=== PATIENT | male | born 1965 ===

== ENCOUNTER 2018-09-07 20:27 | Emergency (ER) | payer OTHER ==
--- NOTE | 2018-09-07 22:40 | EDPHY ---
H & P Stated Complaint: tenderness/swelling in L forearm around site of previous iv Time Seen by Provider: 09/07/18 20:46 HPI/ROS: Chief complaint: Left arm pain History of present illness: This is a 53-year-old male who presents to the emergency department with his for left arm pain. Patient is currently undergoing electro convulsion therapy for depression. He has been having multiple IV started over the last few weeks. He had an IV started in his left AC region a few days ago. He started to develope pain and swelling in this region that has spread to the rest of his arm. There is no report of fever. No abnormal coolness or paresthesias in the arm. No cough, shortness of breath or chest pain. He is still moving the arm well. No history of trauma. Review of systems: A 10 point review of systems was obtained and other than described above was negative - Medical/Surgical History Hx Asthma: No Hx Chronic Respiratory Disease: No Hx Diabetes: No Hx Cardiac Disease: No Hx Renal Disease: No Hx Cirrhosis: No Hx Alcoholism: No Hx HIV/AIDS: No Hx Splenectomy or Spleen Trauma: No Other PMH: sjogrens syndrome, depression, ocd - Social History Smoking Status: Never smoked - Physical Exam Exam: General Appearance: Alert and no distress. Eyes: Pupils equal and round no injection. Respiratory: Chest is non tender, lungs are clear to auscultation. Cardiovascular: regular rate and rhythm. Radial pulses 2+ bilaterally. Gastrointestinal: Abdomen is soft and non tender, no masses, bowel sounds normal. Musculoskeletal: Good range of motion and strength all joints all yan the left upper extremity. Skin: No rashes or lesions. Neurological: Sensation intact throughout the left arm. Constitutional: Initial Vital Signs Temperature (C) 36.9 C 09/07/18 20:39 Heart Rate 83 09/07/18 20:39 Respiratory Rate 16 09/07/18 20:39 Blood Pressure 129/85 H 09/07/18 20:39 O2 Sat (%) 95 09/07/18 20:39 O2 Delivery Mode Room Air Allergies/Adverse Reactions: No Allergies [NKDA] Allergy (Verified 09/07/18 20:42) Home Medications: Medication Instructions Recorded LORazepam [Ativan (*)] 0.5 - 1 mg PO Q4H PRN #30 tab 07/30/18 fluvoxaMINE MALEATE [Luvox 100 MG 300 mg PO HS #90 tab 07/30/18 (*)] Ambien 10 mg PO HS 08/06/18 Advil 1 - 2 mg PO PRN PRN 08/08/18 Medical Decision Making - Diagnostics Imaging Results: Imaging Impressions Extremity Venous Study 09/07/18 21:00 Impression: 1. Extensive superficial thrombophlebitis in the left arm involving the cephalic and basilic veins. 2. No deep venous thrombosis left arm. Findings and recommendations discussed with Emergency Department physician, Dr. Franco at 22:21 hour, 09/07/2018. Final report concurs with initial preliminary interpretation. Imaging: Discussed imaging studies w/ peer specialist Radiologist ED Course/Re-evaluation: Patient is discussed with my secondary supervising physician Dr. Analy Curry. Patient presents to the emergency department for pain and swelling to his left arm after an IV was started. He is nontoxic. Vital signs are stable. Ultrasound confirms an extensive superficial thrombophlebitis. His left upper extremity is neurovascularly intact. He has good musculoskeletal control. I have discussed the use of NSAIDs and warm compresses. He is not to have IVs started in this arm for further treatment. He has a primary care doctor in [place] and I asked him to follow up with the doctor on Monday for recheck. Strict return precautions were given. The patient and his voiced understanding and agreement with plan. Differential Diagnosis: Included but not limited to superficial thrombophlebitis, DVT, cellulitis - Data Points Medications Given: Discontinued Medications Hydrocodone Bitart/Acetaminophen (Erskine 5/325mg Prepack#6) 1 btl TAKEHOME EDNOW ONE Stop: 09/07/18 22:42 Last Admin: 09/07/18 22:54 Dose: Not Given Hydrocodone Bitart/Acetaminophen (Erskine 5/325) 1 tab PO EDNOW ONE Stop: 09/07/18 22:42 Last Admin: 09/07/18 22:54 Dose: Not Given Ibuprofen (Motrin) 800 mg PO EDNOW ONE Stop: 09/07/18 22:42 Last Admin: 09/07/18 22:53 Dose: 800 mg Departure - Departure Disposition: Home, Routine, Self-Care Clinical Impression: Superficial thrombophlebitis Qualifiers: Superficial thrombophlebitis-Involved body area: upper extremity Laterality: left Qualified Code(s): I80.8 - Phlebitis and thrombophlebitis of other sites Condition: Good Instructions: Hydrocodone/Acetaminophen (By mouth), Superficial Thrombophlebitis (ED) Additional Instructions: Please follow-up with a primary care doctor on Monday for recheck without fail Apply warm compresses to the arm multiple times daily Take ibuprofen 600 mg 4 times a day for the next 1-2 days, you can then decreased to 3 times a day, continue until symptoms resolve You have been prescribed Erskine for pain. Erskine contains Tylenol, do not take extra Tylenol/acetaminophen/apap with it. No IVs in the left arm If symptoms worsen or new symptoms develop return to the emergency room for recheck Referrals: Rm Rock MD [Primary Care Provider] - As per Instructions Isabel Nelson DO [Doctor of Osteopathy] - As per Instructions
[2018-09-07] MEDS: IBUPROFEN 800 MG TAB PO ONE (22:53)
[2018-09-07] MEDS: HYDROCOD/APAP 5/325 PREPACK#6 BTL TAKEHOME ONE (22:54)
[2018-09-07] MEDS: HYDROCODONE/APAP 5/325 TAB PO ONE (22:54)
[2018-09-07 23:00] VITALS: BP 130/90
== END 2018-09-07 22:59 | disposition home or self-care (01) ==
DX: I80.8 Phlebitis and thrombophlebitis of other sites (principal)